=== PATIENT | male | born 1990 | race Hispanic/Latino ===

== ENCOUNTER 2016-11-22 09:54 | Emergency (ER) | payer OTHER ==
[2016-11-22] MEDS ORDERED: MOTRIN PO ONE (16:32)
[2016-11-22] MEDS ORDERED: BOOSTRIX IM ONE (16:33)
[2016-11-22] MEDS ORDERED: XYLOCAINE 1% 20 mL INFILTRATI ONE (16:36)
[2016-11-22 18:19] VITALS: BP 121/84
--- NOTE | 2016-11-22 22:10 | Emergency Department Report ---
Entered by MANJU BREWSTER, acting as scribe for JOSE JACOBS NP. ED Laceration HPI - HPI Chief Complaint: Wound/Laceration Stated Complaint: FINGER INJURY/WORK RELATED Time Seen by Provider: 11/22/16 15:27 Occurred When: Today (08:30) Location: Upper Extremity (3rd digit on left hand) Severity: mild Tetanus Status: Not up to Date (not within the last 5 years) Laceration Symptoms: Yes Pain (minimal), No Foreign Body Sensation, No Numbness , No Weakness Other History: 26 year old male with no significant PMHx presents to ED c/o a laceration to his 3rd digit on his left hand that occurred this morning at 08: 30. The patient states that he cut his finger secondary to using his knife to cut wood. He rates his pain a 0 out of 10 in severity. Associated symptom include minimal 3rd digit on left hand pain, but he denies numbness, tingling, fever, chill, nausea, and vomiting. Notes that he hasn't had a tetanus shot within the last 5 years. NKDA. ED Review of Systems ROS: Stated complaint: FINGER INJURY/WORK RELATED Other details as noted in HPI Comment: All other systems reviewed and negative Constitutional: denies: chills, fever, other (tingling) Respiratory: denies: cough, shortness of breath, wheezing Cardiovascular: denies: chest pain, palpitations Gastrointestinal: denies: nausea, vomiting Musculoskeletal: other (minimal 3rd digit on left hand pain) Skin: other (6 cm superficial laceration on 3 rd digit on left hand) Neurological: denies: numbness Psychiatric: denies: anxiety, depression Hematological/Lymphatic: denies: easy bleeding, easy bruising ED Past Medical Hx - Medications Home Medications: Home Medications Medication Instructions Recorded Confirmed Last Taken Type Cephalexin [Keflex] 500 mg PO Q12HR #10 capsule 11/22/16 Unknown Rx Naproxen [Naprosyn TAB] 500 mg PO PRN PRN #15 tablet 11/22/16 Unknown Rx Laceration Physical Exam - Exam General: Vital signs noted. No distress. Alert and acting appropriately. - General: No Limitations, alert, in no apparent distress - Head Exam: atraumatic, normocephalic - Eye exam: Normal appearance - ENT exam: mucous membranes moist -Neck exam: Normal inspection, lymphadenopathy - Respiratory exam: normal lung sounds bilaterally. No respiratory distress - Cardiovascular Exam: Regular rate, normal rhythm. No systolic murmur, diastolic murmur, rubs, or gallop - GI/Abdominal Exam: Abdomen is soft, normal bowel sounds. - Extremities Exam: normal inspection - Back Exam: normal inspection - Neurological Exam: Present: alert, oriented X3 - Skin exam: warm, dry, intact, normal color. No rash. 6 cm laceration to the 3rd digit on left hand. -Psychiatric exam: Present: normal affect, normal mood Wound Length (cm): 6 (superficial) Laceration Location: Upper Extremity (3rd digit on left hand) Laceration Exam: Yes Normal Distal CMS, No Foreign Body, No Exposed Tendon, Vessel, or Nerve, No Tendon Injury ED Course Vital Signs 11/22/16 10:30 Temperature 98.5 F Pulse Rate 105 H Respiratory 16 Rate Blood Pressure 126/89 O2 Sat by Pulse 100 Oximetry Vital Signs 11/22/16 11/22/16 11/22/16 10:30 17:15 17:57 Temperature 98.5 F Pulse Rate 105 H 68 Respiratory 16 16 Rate Blood Pressure 126/89 O2 Sat by Pulse 100 98 Oximetry - Reevaluation(s) Reevaluation #1: 11/22/16 17:56 Patient does not seem intoxicated. No sign of distress. Patient pale A level has decreased significantly to a 0 out of 10 after receiving ibuprofen. - Laceration /Wound Repair Left Palm Finger Wound Location: upper extremity (3rd digit on left hand) Wound Length (cm): 6 Wound's Depth, Shape: superficial Wound Explored: contaminated (grease) Irrigated w/ Saline (ccs): 20 Betadine Prep?: Yes Anesthesia: 1% Lidocaine Volume Anesthetic (ccs): 3 Wound Debrided: minimal Wound Repaired With: sutures Suture Size/Type: 4:0 Number of Sutures: 6 Layer Closure?: No Sterile Dressing Applied?: Yes Progress: Under sterile field, eyes Betadine to prep the third digit. I used 20 mL to flush out the wound. I injected 3 mL of 1% lidocaine plain with 25-gauge 5/8 needle. I then used 4-0 Prolene to close alone. Number stitches 6. Apply sterile dressing to the area with tape. Patient did well. No signs of distress. No complications noted. ED Medical Decision Making - Medical Decision Making Ed course: This is a 26-year-old male that presents with 6 cm laceration to his left third digit. 1- I prescribed ibuprofen for pain. Patient stated the pain stated significantly got better. 2- tetanus booster received. No signs of distress. 3- I sutured the laceration with a 4-0 Prolene number of stitches is 6. Please see procedure for more formation. 4- instructed patient to keep taking antibiotics as prescribed. 5- for the patient sees any signs and symptoms of redness, swelling, pus, numbness or tingling to report back to ER 6- at this time the patient did not seem toxic or ill appearance. gaze noted. Patient doesn't have any further questions. 7-patient is aware of the discharge plan. 8- patient to report back to emergency room for suture removal in 14 days. Critical care attestation.: If time is entered above; I have spent that time in minutes in the direct care of this critically ill patient, excluding procedure time. ED Disposition Clinical Impression: Laceration Disposition: DISCHARGED TO HOME OR SELFCARE Is pt being admited?: No Does the pt Need Aspirin: No Condition: Stable Instructions: Suture Care (ED), Laceration (ED) Additional Instructions: Please follow up with her primary care doctor in 3-5 days. Please report back to emergency room in 14 days for suture removal. If you observe any sinus symptoms or redness, swelling, pus, numbness or tingling reported to emergency room. Prescriptions: Cephalexin [Keflex] 500 mg PO Q12HR #10 capsule Naproxen [Naprosyn TAB] 500 mg PO PRN PRN #15 tablet PRN Reason: Pain Referrals: PRIMARY CARE,MD [Primary Care Provider] - 3-5 Days [facility] [Outside] - 3-5 Days [facility] [Outside] - 3-5 Days This documentation as recorded by the NEY colon JASMINE,accurately reflects the service I personally performed and the decisions made by me,JOSE JACOBS, MICHAEL.
== END 2016-11-22 18:18 | disposition home or self-care (01) ==
LOC: ED 09:54
DX: S61.213A Laceration without foreign body of left middle finger without damage to nail, initial encounter (principal); W26.0XXA Contact with knife, initial encounter; Y93.89 Activity, other specified; Y99.8 Other external cause status; Y92.89 Other specified places as the place of occurrence of the external cause
CPT/HCPCS: 90471; 90715